=== PATIENT | male | born 1985 | race Caucasian/White ===

== ENCOUNTER 2017-03-10 14:06 | Emergency (ER) | payer SELFPAY ==
[2017-03-10 14:10] VITALS: BP 115/73; BMI 24.3
[2017-03-10] MEDS ORDERED: TORADOL 60 MG VIAL IM ONE (15:07)
[2017-03-10] MEDS ORDERED: NORFLEX INJ IM ONE (15:07)
[2017-03-10] MEDS ORDERED: TORADOL 60 MG VIAL ONE (15:08)
[2017-03-10] MEDS ORDERED: NORFLEX INJ ONE (15:08)
--- NOTE | 2017-03-10 15:23 | DR.MBACK ---
HPI - Time Seen Time seen: 15:05 - PCP Primary Care Physician: VANESSA - HPI Comment HPI Comment: FELL 3 WEEKS AGO AND INJURED LT HIP AND LOWER BACK. INCREASE PAIN SINCE. PAIN WORSE SINCE YESTERDAY. NO NEW INJURY. - Complaint Chief Complaint Doctors Comments: LOW BACK AND LEFT HIP PAIN TIMES 3 WKS. Chief Complaint:: PT. C/O LOWER BACK PAIN AND LEFT HIP PAIN. PAIN BEGAN 3 WEEKS AGO S/P FALL WITH WORSENING PAIN YESTERDAY. - Reviewed Nurses Notes Review: Yes - Source History Provided: Patient - Mode of Arrival Mode of Arrival: Ambulatory - Timing Onset of Chief Complaint: 02/17/17 - Duration Duration: Since Onset Duration: Minutes - Location Back Pain Location: Lower, BACK Radiation To: Left, Buttock (AND HIP) - Severity Severity: Moderate - Quality Quality: Sharp - Context Onset: Fall History of: None - Modifying Factors Worsened By: Movement - Associated Signs and Symptoms Back Pain Symptoms: None Numbness: None Weakness: None PMH - PMH Past Medical History: No Past Surgical History: No Surgical History: No History - Family History History of Family Medical Conditions: Yes Family Medical History: Cancer, Hypertension - Social History Does patient currently use any type of tobacco product: Yes Have you used tobacco products in the last 12 months: Yes Type of Tobacco Use: Cigarettes Does any household member use tobacco: Yes Alcohol Use: None Do you use any recreational Drugs:: No Lives With: Spouse Lives Where: Home - infectious screening In the last 2 months have you had wt loss of >10#?: NO Have you had fever, night sweats or hemotysis?: No Have you traveled outside the country in the last 6 months?: No Isolation: Standard ROS - Review of Systems Constitutional: No Symptoms Reported Eyes: No Symptoms Reported ENTM: No Symptoms Reported Respiratoy: No Symptoms Reported Cardiovascular: No Symptoms Reported Gastrointestinal/Abdominal: No Symptoms Reported Genitourinary: No Symptoms Reported Neurological: No Symptoms Reported Musculoskeletal: Back Pain, Back, Hip Integumentary: No Symptoms Reported Hematologic/Lymphatic: No Symptoms Reported Endocrine: No Symptoms Reported All Other Systems: Reviewed and Negative PE - Vital Signs Vitals: Temperature 97.9 F Pulse Rate 100 Respiratory Rate 18 Blood Pressure 115/73 O2 Sat by Pulse Oximetry 98 - General Limitations: No Limitations General Appearance: Alert - Head Head Exam: Normal Inspection - Eyes Eye exam: Normal Appearance - ENT ENT Exam: Normal External Ear Exam - Chest Chest Inspection: Symmetric Chest Wall Rise - Respiratory Respiratory Exam: Normal Lung Sounds Bilat Respiratory Exam: Bilateral Clear to Auscultation - Cardiovascular Cardiovascular Exam: Regular Rate, Normal Rhythm - Abdominal Exam Abdominal Exam: Normal Inspection, Normal Bowel Sounds - Extremities Extremities Exam: Tenderness (LT HIP PAIN) - Back Back Exam: Paraspinal Tenderness (LOWER BACK AND LEFT HIP PAIN) - Neurological Neurological Exam: Alert, Oriented X3 - Psychiatric Psychiatric Exam: Normal Affect, Normal Mood - Skin Skin Exam: Normal Color MDM - Differential Diagnosis Differential Diagnosis: Fracture, Musculoskeletal Pain, Strain Course - Treatment Treatment: SEE ORDERS - Education/Counseling Education/Counseling: Patient, Education Educated On: Diagnosis, Needs for Follow Up ROR - XRAY XRAY Interpreted by: Radiologist XRAY Findings: REPORT DISCUSS WITH PATIENT. - Diagnosis Discharge Problem: Low back pain Qualifiers: Chronicity: acute Back pain laterality: unspecified Sciatica presence: without sciatica Qualified Code(s): M54.5 - Low back pain - Discharge Plan Disposition: 01 HOME, SELF-CARE Condition: Stable Prescriptions: Cyclobenzaprine HCl [FLEXERIL 10 MG *] 10 mg PO TID PRN #20 tab PRN Reason: Ibuprofen [MOTRIN TAB 600 MG *] 600 mg PO TID PRN #20 tab PRN Reason: Pain/Inflammation Tramadol HCl 50 mg PO Q8H PRN #12 tab PRN Reason: Pain - Follow ups/Referrals Follow ups/Referrals: [facility],None [Primary Care Provider] - 2 days KRISTEN GARCIA [STAFF PHYSICIAN] - 2 days - Instructions Instructions: Back Pain, Adult, [id number] Additional Instructions: RETURN TO ED IF WORSE.
--- NOTE | 2017-03-10 16:34 | RAD ---
HISTORY: Subacute history of fall with left hip and back pain Study: Five views lumbar spine Comparison: None Findings: There is mild dextroscoliotic curvature which could be positional or related to muscle spasm. There is minimal discogenic degenerative disease. No evidence for acute fracture can be identified. The re is loss of vertebral body height at L5 which could be congenital/developmental, but an acute/suba cute compression fracture with approximately 30-40% loss of height cannot be excluded. Findings cou ld be correlated with MRI or bone scan. CT is an option as well but less optimal. IMPRESSION: Age-indeterminate L5 loss of vertebral body height and other findings as above. Reported By:
--- NOTE | 2017-03-10 16:34 | RAD ---
HIP RADIOGRAPHS CLINICAL HISTORY: 31-year-old male with left hip pain status post fall 3 weeks prior. COMPARISON: None. FINDINGS: 2 views of the left hip were obtained. These demonstrate no acute fracture or malalignment . The femoral head is round and is well seated within the acetabulum. The joint spaces are maintaine d. The mineralization is maintained. There is no aggressive bone lesion or abnormal periosteal react ion. There is no soft tissue calcification or gas. IMPRESSION: No acute fracture or malalignment of left hip. Reported By:
== END 2017-03-10 16:39 | disposition home or self-care (01) ==
LOC: ER 14:11
DX: M54.5 Low back pain (principal); W19.XXXA Unspecified fall, initial encounter
CPT/HCPCS: 72110; 73501; 96372; 99282; 99283; J1885; J2360